=== PATIENT | male | born 1970 | race Caucasian/White ===

== ENCOUNTER 2019-10-04 04:50 | Emergency (ER) | payer OTHER ==
[~2019-10-04] VITALS: Ht 180.3 cm; Wt 63.1 kg
[2019-10-04] MEDS ORDERED: SULF1TAB49 PO (06:24)
[2019-10-04] MEDS ORDERED: NALO4SPR (06:24)
[2019-10-04] MEDS ORDERED: TETanus/Pertussis (Acell)/Diphther VAC/PF (Tdap-Adult) 0.5ml syringe IMVAC ONE (06:25)
== END 2019-10-04 06:51 | disposition home or self-care (01) ==
LOC: ER 04:51
DX: Z48.00 Encounter for change or removal of nonsurgical wound dressing (principal); F15.90 Other stimulant use, unspecified, uncomplicated; F11.90 Opioid use, unspecified, uncomplicated; F17.200 Nicotine dependence, unspecified, uncomplicated; Z88.8 Allergy status to other drugs, medicaments and biological substances; Z79.899 Other long term (current) drug therapy
CPT/HCPCS: 99283